=== PATIENT | female | born 1975 | race African-American/Black ===

== ENCOUNTER 2016-06-08 08:06 | Emergency (ER) | payer OTHER ==
[2016-06-08] MEDS ORDERED: methylPREDNISolone Acetate 40 mg/ml Vial ONE (08:30)
[2016-06-08] MEDS ORDERED: Dexamethasone 10 MG/ML VIAL ONE (08:30)
--- NOTE | 2016-06-08 08:41 | ERRECORD ---
[facility] EMERGENCY RECORD HPI RASH (08:30 SHAN) CHIEF COMPLAINT: Patient presents for evaluation of rash. HISTORIAN: History provided by patient, rash for over a month, used triamcinolone cream on it, not improving though. TIME COURSE: Gradual onset of symptoms. EXACERBATED BY: Patient's condition exacerbated by nothing. RELIEVED BY: Patient's condition relieved by nothing. ROS (08:31 SHAN) CONSTITUTIONAL: Negative constitutional review of systems, Historian denies chills, denies fever. EYES: Negative eye review of systems. ENT: Negative ears, nose, throat review of systems. CARDIOVASCULAR: Negative cardiovascular review of systems, Historian denies chest pain, denies palpitations. RESPIRATORY: Negative respiratory review of systems, Historian denies cough, denies shortness of breath. GI: Negative gastrointestinal review of systems, Historian denies abdominal pain, denies constipation, denies diarrhea. MUSCULOSKELETAL: Negative musculoskeletal review of systems. SKIN: Historian reports rash. NEUROLOGIC: Negative neurologic review of systems. ENDOCRINE: Negative endocrine review of systems. HEMO/LYMPHATIC: Normal hematologic/lymphatic system review. PSYCHIATRIC: Negative psychiatric review of systems. NOTES: All other ROS is negative except as listed in HPI. PAST MEDICAL HISTORY MEDICAL HISTORY: No past medical history. (08:15 CINTIA) FEMALE SURGICAL HISTORY: Patient has no surgical history. (08:15 CINTIA) PSYCHIATRIC HISTORY: No previous psychiatric history, no previous inpatient psychiatric admissions. (08:15 CINTIA) SOCIAL HISTORY: Patient denies alcohol use, Patient denies drug use, Patient has no smoking history. (08:15 CINTIA) NOTES: I have reviewed and agree with the PMH/PSxH/FamHx/SocHx obtained by the nurse. (08:31 SHAN) KNOWN ALLERGIES No Known Drug Allergies CURRENT MEDICATIONS (08:14 CINTIA) None VITAL SIGNS (08:14 CINTIA) VITAL SIGNS: BP: 106/60, Pulse: 78, Resp: 16, Temp: 98.3 (Oral), Pain: 6, O2 sat: 100 on Room Air, Time: 06/08/2016 08:14. &a-1R&a+25V*p+0X*z0082B*c202B*c15G*c2P*p-0X&a-25V&a+1R Name: Alysha Bahena : 1975 F40 MedRec: [id number] AcctNum: [id number] Prepared: [facility] Jun 08, 2016 08:57 by Interface Page 1 of 3 pMD [facility] EMERGENCY RECORD PHYSICAL EXAM (08:31 SHAN) CONSTITUTIONAL: Vital signs reviewed, Patient appears non toxic, Patient alert and oriented to person, place and time, Pt is in no apparent distress. HEAD: Head exam included findings of head atraumatic, normocephalic. EYES: Eye exam included findings of eyelids normal to inspection, Pupils equally round and reactive to light, Extraocular muscles intact. ENT: ENT exam normal, Nose exam normal, no nasal deformity, no bleeding from nares, Pharynx exam normal, Mouth exam normal, mucous membranes moist. NECK: Neck exam included findings of normal range of motion, Trachea midline. RESPIRATORY CHEST: Respiratory and chest exam normal, Breath sounds clear, No wheezing, No rales, Chest exam included findings of chest movement symmetrical, Chest expansion equal. CARDIOVASCULAR: Cardiovascular assessment normal, Cardiovascular exam included findings of heart rate regular rate and rhythm, Heart sounds normal. ABDOMEN FEMALE: Abdominal exam included findings of abdomen nontender, Bowel sounds normal, no mass, no pulsatile masses, no peritoneal signs. BACK: Back exam included findings of normal inspection, range of motion normal, no costovertebral angle tenderness. UPPER EXTREMITY: Upper extremity exam included findings of inspection normal, Range of motion normal. LOWER EXTREMITY: Lower extremity exam included findings of inspection normal, Range of motion normal. NEURO: Neuro exam findings include patient oriented to person, place and time, Speech normal, no focal motor deficits, no focal sensory deficits. SKIN: Skin exam included findings of skin warm, dry, and normal in color, Rash present, dry eczematoid rash on hands; vesicular rash on lower neck and upper chest; pruritic. LYMPHATIC: Lymphatic exam normal. PSYCHIATRIC: Psychiatric exam included findings of patient oriented to person place and time, Normal affect. MEDICATION ADMINISTRATION SUMMARY Drug Name: Depo-Medrol intramuscular, Dose Ordered: 120 mg, Route: Intramuscular, Status: Given, Time: 08:39 06/08/2016, Drug Name: Decadron Phosphate injection, Dose Ordered: 6 mg, Route: Intramuscular, Status: Given, Time: 08:34 06/08/2016, Detailed record available in Medication Service section. PROBLEM LIST No recorded problems &a-1R&a+25V*p+0X*[id number]*c202B*c15G*c2P*p-0X&a-25V&a+1R Name: Alysha Bahena : 1975 2 MedRec: [id number] AcctNum: [id number] Prepared: SunJun 08, 2016 08:57 by Interface Page 2 of 3 pMD [facility] EMERGENCY RECORD DIAGNOSIS (:) FINAL: PRIMARY: eczema. PRESCRIPTION () Elocon: CREAM (GRAM) : 0.1 % : TOPICAL : Quantity: 1 Unit: joseph Route: TOPICAL Schedule: 2 times a day Dispense: 1 Unit: Tube May substitute. Refills: No Refills . NOTES: No Refills. DISPOSITION PATIENT: Disposition Type: Discharge, Disposition: *Discharge Home. (08: RUBÉN) Patient left the department. (08:53 CINTIA) Perez: CINTIA=AMARIS Magallon, Tesha [place]=MD Neo, Ray &a-1R&a+25V*p+0X*[id number]*c202B*c15G*c2P*p-0X&a-25V&a+1R Name: Alysha Bahena : 1975 2 MedRec: [id number] AcctNum: [id number] Prepared: SunJun 08, 2016 08:57 by Interface Page [address] [facility]
--- NOTE | 2016-06-08 08:47 | PICIS ---
[facility] EMERGENCY RECORD TRIAGE (08:14 CINTIA) TRIAGE NOTES: RASH FOR A COUPLE DAYS. UNKNOWN WHAT THE REACTION IS TO. DENIES SOB. (08:14 CINTIA) PATIENT: NAME: Alysha Bahena, AGE: 40, GENDER: female, : Sun1975, TIME OF GREET: Monse Jun 08, 2016 08:07, PREFERRED LANGUAGE: Croatian, ETHNICITY: Not or , ECODE BILLING MAP: [facility], Zip Code: [address], KG WEIGHT: 95.25, PHONE: , , , PERSON ID: [id number], PCP: Gordo Mayer. (08:14 CINTIA) COMPLAINT: RASH. (08:14 CINTIA) ADMISSION: URGENCY: 4 Non Urgent, ADMISSION SOURCE: Home, TRANSPORT: Walk-in, BED: ED -03. (08:14 CINTIA) ASSESSMENT: Additional Triage notes: PATIENT WITH RASH FOR A COUPLE DAYS. UNKNOWN WHAT THE REACTION IS TO. HAS NOT BEEN EXPOSED TO ANYTHING NEW. (08:15 CINTIA) PAIN: Patient complains of pain described as, itching, Location GENERALIZED, Pain is constant. (08:15 CINTIA) IMMUNIZATIONS: Flu vaccine not up to date, Tetanus not up to date, Pneumococcal vaccine not up to date. (08:15 CINTIA) SIRS SCORING: Heart Rate 55-109 (0), Temp range 96.8-101.1 (0), respiratory rate 12-24 (0), Mental Status altered: no (0). (08:15 CINTIA) TRIAGE SCREENING: Patient denies suicidal ideation, Patient denies presence of domestic violence. (08:15 CINTIA) PROVIDERS: TRIAGE NURSE: Tesha Magallon RN. (08:14 CINTIA) VITAL SIGNS: BP 106/60, Pulse 78, Resp 16, Temp 98.3, (Oral), Pain 6, O2 Sat 100, on Room Air, Time 06/08/2016 08:14. (08:14 CINTIA) KNOWN ALLERGIES No Known Drug Allergies CURRENT MEDICATIONS (08:14 CINTIA) None VITAL SIGNS (08:14 CINTIA) VITAL SIGNS: BP: 106/60, Pulse: 78, Resp: 16, Temp: 98.3 (Oral), Pain: 6, O2 sat: 100 on Room Air, Time: 06/08/2016 08:14. NURSING ASSESSMENT: SKIN (08:17 CINTIA) CONSTITUTIONAL: Patient arrives ambulatory, Gait steady, History obtained from patient, Patient appears comfortable, Patient cooperative, Patient alert, Oriented to person, place and time, Skin warm, Skin dry, Skin normal in color, Mucous membranes pink, Mucous membranes moist, Patient is well-groomed, PATIENT C/O RASH THAT SHOWED UP A COUPLE OF DAYS AGO. PATIENT DENIES BEING EXPOSED TO ANYTHING NEW. RASH IS FROM THE WAIST UP. DENIES ANY SOB. PAIN: itching pain, DIFFUSE. &a-1R&a+25V*p+0X*s0893U*c202B*c15G*c2P*p-0X&a-25V&a+1R Name: Alysha Bahena : 1975 F40 MedRec: [id number] AcctNum: [id number] Prepared: [facility] Jun 08, 2016 09:03 by Interface Page 1 of 5 pMD [facility] EMERGENCY RECORD SKIN: Skin assessment findings include skin warm, Skin dry, Skin normal in color, Inspection findings include rash, red, hives, itchy, without drainage, to WAIST UP. SAFETY: Cart/Stretcher in lowest position, Family at bedside, Hospital ID band on. NURSING PROCEDURE: DISCHARGE NOTE (08:53 CINTIA) DISCHARGE: Patient discharged to home, ambulating without assistance, driving self, accompanied by //partner, Discharge instructions given to patient, Simple or moderate discharge teaching performed, Prescriptions given and instructions on side effects given, Above person(s) verbalized understanding of discharge instructions and follow-up care. BELONGINGS: Belongings and valuables with patient upon arrival to the Emergency Department include:, Belongings and valuables with patient at time of discharge include:, Belongings remain with patient, Valuables remain with patient. MEDICATION ADMINISTRATION SUMMARY Drug Name: Depo-Medrol intramuscular, Dose Ordered: 120 mg, Route: Intramuscular, Status: Given, Time: 08:39 06/08/2016, Drug Name: Decadron Phosphate injection, Dose Ordered: 6 mg, Route: Intramuscular, Status: Given, Time: 08:34 06/08/2016, Detailed record available in Medication Service section. MEDICATION SERVICE Decadron Phosphate injection: Order: Decadron Phosphate injection (dexamethasone sod phosphate) - Dose: 6 mg : Intramuscular Schedule: Now Ordered by: Ray Larson MD Entered by: Ray Larson MD [facility] Jun 08, 2016 08:27 , Acknowledged by: Tesha Magallon RN [facility] Jun 08, 2016 08:28 Documented as given by: Tesha Magallon RN [facility] Jun 08, 2016 08:34 Patient, Medication, Dose, Route and Time verified prior to administration. Medication administered to right deltoid, Correct patient, time, route, dose and medication confirmed prior to administration, Patient advised of actions and side-effects prior to administration, Allergies confirmed and medications reviewed prior to administration, Patient in position of comfort, Side rails up, Cart in lowest position, Family at bedside. Depo-Medrol intramuscular: Order: Depo-Medrol intramuscular (methylprednisolone acetate) - Dose: 120 mg : Intramuscular Schedule: Now Ordered by: Ray Larson MD Entered by: Ray Larson MD [facility] Jun 08, 2016 08:27 , Acknowledged by: Tesha Magallon RN [facility] Jun 08, 2016 08:28 &a-1R&a+25V*p+0X*z7236C*c202B*c15G*c2P*p-0X&a-25V&a+1R Name: Alysha Bahena : 1975 F40 MedRec: [id number] AcctNum: [id number] Prepared: SunJun 08, 2016 09:03 by Interface Page 2 of 5 pMD [facility] EMERGENCY RECORD Documented as given by: Tesha Magallon RN [facility] Jun 08, 2016 08:39 Patient, Medication, Dose, Route and Time verified prior to administration. Medication administered to left buttock, Correct patient, time, route, dose and medication confirmed prior to administration, Patient advised of actions and side-effects prior to administration, Allergies confirmed and medications reviewed prior to administration, Patient in position of comfort, Side rails up, Cart in lowest position, Family at bedside. HPI RASH (08:30 SHAN) CHIEF COMPLAINT: Patient presents for evaluation of rash. HISTORIAN: History provided by patient, rash for over a month, used triamcinolone cream on it, not improving though. TIME COURSE: Gradual onset of symptoms. EXACERBATED BY: Patient's condition exacerbated by nothing. RELIEVED BY: Patient's condition relieved by nothing. ROS (: [facility]) CONSTITUTIONAL: Negative constitutional review of systems, Historian denies chills, denies fever. EYES: Negative eye review of systems. ENT: Negative ears, nose, throat review of systems. CARDIOVASCULAR: Negative cardiovascular review of systems, Historian denies chest pain, denies palpitations. RESPIRATORY: Negative respiratory review of systems, Historian denies cough, denies shortness of breath. GI: Negative gastrointestinal review of systems, Historian denies abdominal pain, denies constipation, denies diarrhea. MUSCULOSKELETAL: Negative musculoskeletal review of systems. SKIN: Historian reports rash. NEUROLOGIC: Negative neurologic review of systems. ENDOCRINE: Negative endocrine review of systems. HEMO/LYMPHATIC: Normal hematologic/lymphatic system review. PSYCHIATRIC: Negative psychiatric review of systems. NOTES: All other ROS is negative except as listed in HPI. PAST MEDICAL HISTORY MEDICAL HISTORY: No past medical history. (08:15 CINTIA) FEMALE SURGICAL HISTORY: Patient has no surgical history. (08:15 CINTIA) PSYCHIATRIC HISTORY: No previous psychiatric history, no previous inpatient psychiatric admissions. (08:15 CINTIA) SOCIAL HISTORY: Patient denies alcohol use, Patient denies drug use, Patient has no smoking history. (08:15 CINTIA) NOTES: I have reviewed and agree with the PMH/PSxH/FamHx/SocHx obtained by the nurse. (: [facility]) &a-1R&a+25V*p+0X*[id number]*c202B*c15G*c2P*p-0X&a-25V&a+1R Name: Alysha Bahena : 1975 F40 MedRec: [id number] AcctNum: [id number] Prepared: Monse Jun 08, 2016 09:03 by Interface Page 3 of 5 pMD [facility] EMERGENCY RECORD PHYSICAL EXAM (: [facility]) CONSTITUTIONAL: Vital signs reviewed, Patient appears non toxic, Patient alert and oriented to person, place and time, Pt is in no apparent distress. HEAD: Head exam included findings of head atraumatic, normocephalic. EYES: Eye exam included findings of eyelids normal to inspection, Pupils equally round and reactive to light, Extraocular muscles intact. ENT: ENT exam normal, Nose exam normal, no nasal deformity, no bleeding from nares, Pharynx exam normal, Mouth exam normal, mucous membranes moist. NECK: Neck exam included findings of normal range of motion, Trachea midline. RESPIRATORY CHEST: Respiratory and chest exam normal, Breath sounds clear, No wheezing, No rales, Chest exam included findings of chest movement symmetrical, Chest expansion equal. CARDIOVASCULAR: Cardiovascular assessment normal, Cardiovascular exam included findings of heart rate regular rate and rhythm, Heart sounds normal. ABDOMEN FEMALE: Abdominal exam included findings of abdomen nontender, Bowel sounds normal, no mass, no pulsatile masses, no peritoneal signs. BACK: Back exam included findings of normal inspection, range of motion normal, no costovertebral angle tenderness. UPPER EXTREMITY: Upper extremity exam included findings of inspection normal, Range of motion normal. LOWER EXTREMITY: Lower extremity exam included findings of inspection normal, Range of motion normal. NEURO: Neuro exam findings include patient oriented to person, place and time, Speech normal, no focal motor deficits, no focal sensory deficits. SKIN: Skin exam included findings of skin warm, dry, and normal in color, Rash present, dry eczematoid rash on hands; vesicular rash on lower neck and upper chest; pruritic. LYMPHATIC: Lymphatic exam normal. PSYCHIATRIC: Psychiatric exam included findings of patient oriented to person place and time, Normal affect. EVENTS TRANSFER: Triage to Emergency Main ED -03. (SunJun 08, 2016 08:14 CINTIA) Removed from Emergency Main ED -03. (08:53 CINTIA) PROBLEM LIST No recorded problems DIAGNOSIS (08:28 SHAN) FINAL: PRIMARY: eczema. &a-1R&a+25V*p+0X*g3796I*c202B*c15G*c2P*p-0X&a-25V&a+1R Name: Alysha Bahena : 1975 F40 MedRec: [id number] AcctNum: [id number] Prepared: SunJun 08, 2016 09:03 by Interface Page 4 of 5 pMD [facility] EMERGENCY RECORD DISPOSITION PATIENT: Disposition Type: Discharge, Disposition: *Discharge Home. (08:28 SHAN) Patient left the department. (08:53 CINTIA) INSTRUCTION (08:30 SHAN) DISCHARGE: DERMATITIS ATOPIC ECZEMA. FOLLOWUP: Cristian Coppola, [facility], Clinic, [address] [place] [address], . SPECIAL: 1. elocon cream twice a day if needed 2. use baby oil gel several times a day 3. change detergents 4. if this persists; dermatology consultation would be recommended. PRESCRIPTION (08:28 RUBÉN) Elocon: CREAM (GRAM) : 0.1 % : TOPICAL : Quantity: 1 Unit: joseph Route: TOPICAL Schedule: 2 times a day Dispense: 1 Unit: Tube May substitute. Refills: No Refills . NOTES: No Refills. IMAGING (08:53 CINTIA) *DISCHARGE INSTRUCTIONS RECEIPT: Image captured from scanner. *SUPPLY CHARGE SHEET: Image captured from scanner. ADMIN (08:32 RUBÉN) DIGITAL SIGNATURE: MD Larson Stanley. Perez: CINTIA=AMARIS Magallon, Tesha [place]=MD Larson Stanley &a-1R&a+25V*p+0X*e5692K*c202B*c15G*c2P*p-0X&a-25V&a+1R Name: Alysha Bahena : 1975 F40 MedRec: [id number] AcctNum: [id number] Prepared: Monse Jun 08, 2016 09:03 by Interface Page 5 of 5 pMD [facility]
== END 2016-06-08 08:55 | disposition home or self-care (01) ==
LOC: MADERS 08:06
DX: L30.9 Dermatitis, unspecified (principal)
CPT/HCPCS: 96372; J1030; J1040; J1100

== ENCOUNTER 2016-07-02 11:15 | Emergency (ER) | payer OTHER ==
[2016-07-02] MEDS ORDERED: predniSONE 20 MG TAB ONE (12:10)
== END 2016-07-02 12:35 | disposition home or self-care (01) ==
LOC: MADERS 11:15
DX: L25.9 Unspecified contact dermatitis, unspecified cause (principal); Z79.899 Other long term (current) drug therapy
CPT/HCPCS: 96372; J1040; J7506